=== PATIENT | male | born 1990 | race Caucasian/White ===

== ENCOUNTER 2021-09-28 00:28 | Inpatient (IN) ==
[2021-09-28 01:29] LABS: ABS Basophils 0.1 10^3/ul (0-0.2); ABS Eosinophils 0.3 10^3/ul (0-0.6); ABS Lymphocytes 2.9 10^3/ul (1.0-4.8); ABS Monocytes 0.4 10^3/ul (0-0.8); ABS Neutrophils 2.8 10^3/ul (1.5-7.7); Hematocrit 43 % (42-52); Hemoglobin 14.4 g/dL (14.0-18.0); Lymphocyte % 44.4 %; Mean Corpuscular HGB Conc 34 g/dL (31-36); Mean Corpuscular Hemoglobin 29 pg (27-31); Mean Corpuscular Volume 88 fL (80-94); Mean Platelet Volume 8.4 fL (7.4-10.4); Platelet Count 193 10^3/uL (150-450); Red Cell Distribution Width 13 % (10-15); White Blood Count 6.4 10^3/uL (3.5-10.8)
[2021-09-28] MEDS ORDERED: Nicotine PATCH 21 MG/24 HR PATCH TRANSDERM ONE ×2 (01:45→07:18)
[2021-09-28 02:13] LABS: ALT 114 U/L (7-52); AST 47 U/L (13-39); Acetaminophen < 15 mcg/mL; Albumin 4.1 g/dL (3.2-5.2); Albumin/Globulin Ratio 1.9 (1-3); Alcohol, S < 13 mg/dL (<13); Alkaline Phosphatase 64 U/L (35-149); Anion Gap 7 mmol/L (2-11); Blood Urea Nitrogen 14 mg/dL (6-24); CO2 Carbon Dioxide 26 mmol/L (22-32); Calcium 9.2 mg/dL (8.6-10.3); Chloride 108 mmol/L (101-111); Globulin 2.2 g/dL (2-4); Glucose 90 mg/dL (70-100); Potassium 3.9 mmol/L (3.5-5.0); Salicylate < 2.50 mg/dL (<30); Sodium 141 mmol/L (135-145); Total Protein 6.3 g/dL (6.4-8.9); eGFR CKD-EPI 73.7 (>60)
[2021-09-28 02:28] LABS: TSH Ultra Thyroid Stim Horm 4.19 mcIU/mL (0.34-5.60)
[2021-09-28 07:40] LABS: Urine Appearance Clear; Urine Bilirubin Negative (Negative); Urine Blood Negative (Negative); Urine Color Yellow; Urine Glucose Negative (Negative); Urine Ketones Negative (Negative); Urine Nitrite Negative (Negative); Urine Protein Negative (Negative); Urine Specific Gravity 1.029 (1.002-1.030); Urine Urobilinogen Negative (Negative)
[2021-09-28] MEDS ORDERED: Lamotrigine XR 200 mg TAB (NF) PO ONE (07:55)
[2021-09-28] MEDS ORDERED: Cariprazine 4.5 MG CAPSULE PO ONE (07:55)
[2021-09-28 07:59] LABS: Urine Benzodiazepine Screen Presumptive Positive (None Detect); Urine Cannabinoids Screen None Detected (None Detect); Urine Opiates Screen None Detected (None Detect)
[2021-09-28 10:43] LABS: Calcium 8.9 mg/dL (8.6-10.3); Potassium 4.3 mmol/L (3.5-5.0); Total Bilirubin 0.3 mg/dL (0.2-1.0)
[2021-09-28 10:49] LABS: Albumin/Globulin Ratio 1.9 (1-3); Globulin 2.1 g/dL (2-4); Total Protein 6.1 g/dL (6.4-8.9); eGFR CKD-EPI 68.1 (>60)
[2021-09-28] MEDS ORDERED: Al Hydrox/Mg Hydrox/Simet LIQ 30 ML UDC PO PRN (13:14)
[2021-09-28] MEDS ORDERED: LAMOTRIGINE 200 MG PO ONE (15:00)
[2021-09-28 16:24] VITALS: BP 137/97
[2021-09-28] MEDS ORDERED: PTO: Cariprazine 4.5 MG CAPSULE PO SCH (21:00)
[2021-09-29] MEDS: Nicotine GUM 4MG FRUIT FLAVOR PO PRN ×5 (07:08→16:21)
[2021-09-29] MEDS ORDERED: LAMOTRIGINE 200 MG PO SCH (09:00)
[2021-09-29] MEDS ORDERED: Amphetamine MIXED SALT 10mgTAB PO SCH ×3 (14:00→16:00)
== END 2021-09-29 16:45 | disposition home or self-care (01) | DRG 753 ==
LOC: ED 00:28 → EDHOLD 13:14 → BSU 15:55
PROVIDERS: ADMIT Psychiatry & Neurology Psychiatry; ATTEND Psychiatry & Neurology Psychiatry